=== PATIENT | male | born 1985 | race Caucasian/White ===

== ENCOUNTER 2021-08-26 19:19 | Emergency (ER) | payer OTHER, SELFPAY ==
--- NOTE | ~2021-08-26 | XR_ITS ---
XR chest 2V DATE: 08/26/2021 22:48 INDICATION: Fever, cough, nausea TECHNIQUE: PA and lateral views COMPARISON: None FINDINGS: Normal heart size. No hilar or mediastinal enlargement. No pulmonary infiltrate or consolid ation, pleural effusion or pulmonary vascular congestion or pneumothorax. Status post cholecystectomy. 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
--- NOTE | ~2021-08-26 | CT_ITS ---
EXAMINATION: CT abdomen pelvis w con DATE: 08/27/2021 00:16 INDICATION: Right flank pain. Fever. TECHNIQUE: Computed tomography (CT) of the abdomen and pelvis was performed with 100 mL Omnipaque 350 intravenous contrast. Automated exposure control and iterative reconstruction technique were employe d. The dose-length product was 1569.39 mGy-cm. COMPARISON: None. FINDINGS: The visualized portions of the lung bases are clear without pneumonia or pleural effusion. The heart size is normal. No pericardial effusion. There is diffuse hepatic steatosis. There is mild splenomegaly. There are changes of cholecystectomy. The pancreas, adrenal glands, and kidneys are nor mal. There are no dilated loops of bowel. The appendix is normal. There is an umbilical hernia contai candy fat. There are no pathologically enlarged lymph nodes. There is no free intraperitoneal fluid. T he left spermatic cord is absent. There is a chronic compression fracture in lower thoracic spine. IMPRESSION: 1. Diffuse hepatic steatosis. 2. Mild splenomegaly. 3. Umbilical hernia containing fat. Reviewed, dictated and finalized at location A. 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
[2021-08-26 19:58] VITALS: BP 111/63; PULSE 106; RESP 18; TEMP 38.1; O2SAT 97
--- NOTE | 2021-08-26 22:48 | ED.GENADULT ---
HPI - General Adult General Chief complaint: Fever Stated complaint: Fever Time Seen by Provider: 08/26/21 22:40 Source: patient and RN notes reviewed History of Present Illness HPI narrative: Patient is a 36 y/o male complaining of fever since yesterday. He state that his temp was up to 102.8. He has been taking Tylenol and Motrin, which provides temporary relief. He has a slight cough. He also has some right back pain. He has no dysuria. Related Data Home Medications Medication Instructions Recorded Confirmed No Home Medications 08/26/21 08/26/21 Allergies Allergy/AdvReac Type Severity Reaction Status Date / Time No Known Allergies Allergy Verified 08/26/21 23:02 Review of Systems Constitutional: Constitutional: Denies chills, Reports fever(s), Denies headache(s) and Denies weakness Eyes: Eyes: Denies blurry vision ENT: Denies headache(s) and Denies neck pain Cardiovascular: Cardiovascular: Denies chest pain and Denies dyspnea Respiratory: Respiratory: Reports cough and Denies dyspnea Gastrointestinal: Gastrointestinal: Denies abdominal pain, Denies diarrhea, Denies nausea and Denies vomiting Genitourinary: Genitourinary: Denies hematuria and Denies dysuria Musculoskeletal: Musculoskeletal: Reports back pain and Denies neck pain Neurologic: Denies headache(s) and Denies weakness Exam Const: General: no acute distress and well developed Orientation/consciousness: oriented to person, oriented to place, oriented to time and patient oriented x3 HENMT: Head: normocephalic Ears: external ears normal General nose exam: Normal external nose present Eyes: General: appearance normal, both eyes and all related structures Conjunctivae: conjunctivae normal Neck: Neck: normal visual inspection and full ROM Chest: Chest palpation & inspection: normal inspection of the chest and no tenderness Resp: Effort & Inspection: normal respiratory effort Auscultation: clear to auscultation bilaterally Cardio: Rate: regular rate Rhythm: regular rhythm GI: GI Palp: No abdominal tenderness and Yes Soft to palpation Skin: General skin exam: normal color and turgor normal Neuro: General: oriented to person, oriented to place, oriented to time and patient oriented x3 Cognition (Neuro): normal cognition Extrem: General: normal to inspection, full ROM and no pedal edema Psych: Appearance: grossly normal Mental Status: mental status grossly normal Affect: normal affect Course Vital Signs Vital signs: Vital Signs Temperature 38.1 C H 08/26/21 19:58 Pulse Rate 106 H 08/26/21 19:58 Respiratory Rate 18 08/26/21 19:58 Blood Pressure 111/63 08/26/21 19:58 Pulse Oximetry 97 08/26/21 19:58 Temperature 37.5 C 08/26/21 23:06 Pulse Rate 106 H 08/26/21 19:58 Respiratory Rate 18 08/26/21 19:58 Blood Pressure 111/63 08/26/21 19:58 Pulse Oximetry 97 08/26/21 19:58 Medical Decision Making Vital Signs Vital Signs: Vital Signs Temperature 38.1 C H 08/26/21 19:58 Pulse Rate 106 H 08/26/21 19:58 Respiratory Rate 18 08/26/21 19:58 Blood Pressure 111/63 08/26/21 19:58 Pulse Oximetry 97 08/26/21 19:58 Temperature 37.5 C 08/26/21 23:06 Pulse Rate 106 H 08/26/21 19:58 Respiratory Rate 18 08/26/21 19:58 Blood Pressure 111/63 08/26/21 19:58 Pulse Oximetry 97 08/26/21 19:58 Lab Data Result diagrams: 08/26/21 23:10 08/26/21 23:10 Labs: Lab Results 08/26/21 08/26/21 08/26/21 Range/Units 23:10 23:10 23:10 WBC Pending RBC Pending Hgb Pending Hct Pending MCV Pending MCH Pending MCHC Pending RDW Pending Plt Count Pending MPV Pending Immature Gran % (Auto) Pending Neut % (Auto) Pending Lymph % (Auto) Pending Coffee % (Auto) Pending Eos % (Auto) Pending Baso % (Auto) Pending Lymph # (Auto) Pending Coffee # (Auto) Pending Eos # (Au
[2021-08-26] MEDS: ACETAMINOPHEN 325 MG TABLET 650 MG PO (23:03)
[2021-08-26 23:06] VITALS: TEMP 37.5
[2021-08-26] MEDS: SODIUM CHLORIDE 0.9% IV 1,000 ML 999 ML IV CONT (23:20)
[2021-08-26 23:21] LABS: Basophils Percent Auto 0.2 % (0.2-1.2); Hematocrit 40.7 % (42.0-52.0); Hemoglobin 14.3 g/dL (14.0-18.0); Immature Granulocyte Absolute 0.05 K/mm3 (0.00-0.031); Immature Granulocyte Percent A 1.2 % (0-0.5); Lymphocytes Absolute Auto 1.09 K/mm3 (0.9-3.2); Lymphocytes Percent Auto 27.1 % (18.3-44.2); Mean Corpuscular HGB Conc 35.1 g/dl (32-36); Mean Corpuscular Volume 88.1 fl (80-100); Monocytes Absolute Auto 0.3 K/mm3 (0.1-0.6); Monocytes Percent Auto 6.5 % (2.6-8.5); Neutrophils Absolute Auto 2.6 K/mm3 (1.3-6.7); Platelet Count Result 102 k/mm3 (150-375); Red Blood Count 4.62 M/mm3 (4.6-6.20); Red Cell Distribution Width 12.4 % (11.5-14.5)
[2021-08-26 23:33] LABS: Alanine Aminotransferase 128 U/L (4-50); Albumin Level 3.8 g/dL (3.5-5.1); Alkaline Phosphatase 118 U/L (38-126); Anion Gap 7 mmol/L (8-16); Aspartate Amino Transferase 92 U/L (17-59); Bilirubin,Total 1.2 mg/dL (0.2-1.3); Blood Urea Nitrogen 11 mg/dL (9-20); Calcium 8.5 mg/dL (8.4-10.2); Carbon Dioxide 25 mmol/L (22-30); Chloride 104 mmol/L (98-107); Estimated CRCL calculation 133 ml/min; Estimated Glomerular Filt Rate > 60; Glucose 120 mg/dL (65-110); Lactic Acid Reflex 0.8 mmol/L (0.7-2.1); Potassium 3.5 mmol/L (3.4-5.0); Sodium 136 mmol/L (137-145)
[2021-08-26 23:38] LABS: Add Urine Microscopic? YES; Appearance Urine Cloudy (Clear); Bilirubin Urine 1+ (Negative); Blood Urine 1+ (Negative); Color Urine Amber (Yellow); Glucose Urine UA Negative (Negative); Ketones Urine Negative (Negative); Leukocyte Esterase Ur Negative LEU/UL (Negative); Mucus Urine Heavy /lpf; Nitrate Urine Negative (Negative); Protein Urine 2+ mg/dL (Negative); Squamous Epithelial Cell Urine Rare /hpf (Few); WBC Urine 0-3 /hpf
[2021-08-26 23:50] LABS: Platelet Estimate Decreased (Adequate)
[2021-08-27 01:41] VITALS: TEMP 37.3
[2021-08-27 02:15] VITALS: BP 124/89; PULSE 80; RESP 16; O2SAT 98
[2021-08-27 02:32] LABS: Hepatitis B Surface Antigen Negative (Negative)
[2021-08-27 02:38] LABS: HAV RESULT Negative (Negative); Hepatitis B Core IgM Result Negative (Negative)
[2021-08-27 02:50] LABS: Hepatitis C Virus Antibody Negative (Negative)
[2021-08-27 19:00] LABS: SARS-CoV-2 RNA PCR Negative
== END 2021-08-27 02:16 | disposition home or self-care (01) ==
PROVIDERS: Emergency Provider Emergency Medicine
DX: R50.9 Fever, unspecified (principal); R74.01 Elevation of levels of liver transaminase levels; M54.9 Dorsalgia, unspecified; Z20.822 Contact with and (suspected) exposure to COVID-19
CPT/HCPCS: 36415; 71046; 74177; 80053; 80074; 81001; 83605; 85025; 87040; 96360; 96361; 99284; A9270; C9803; J7030; Q9967; U0003; U0005

== ENCOUNTER 2024-02-02 01:35 | Emergency (ER) | payer OTHER, SELFPAY ==
--- NOTE | ~2024-02-02 | XR_ITS ---
Lumbosacral Spine: AP and lateral views Clinical History: Pain Findings: The normal lordotic curve is maintained. The vertebral bodies and posterior elements are i ntact. The intervertebral disc spaces are preserved. The sacroiliac joints are normally outlined. Impression: No significant abnormality. Reviewed, dictated and finalized at [facility]. Impression: No significant abnormality.
[2024-02-02 01:39] VITALS: BP 149/91; PULSE 113; RESP 20; TEMP 36.5; O2SAT 98
--- NOTE | 2024-02-02 01:53 | ED.GENADULT ---
HPI - General Adult General Chief complaint: Back Pain/Injury Stated complaint: Low back pain, abnormal BM, decreased urine Time Seen by Provider: 02/02/24 01:45 Source: patient Mode of arrival: ambulatory Limitations: no limitations History of Present Illness HPI narrative: 39-year-old male presenting from multiple symptoms. He fell on his bottom several months ago and has been having aching pain in his bottom number since. It is in his low lumbar back that goes on both sides of his back it does not radiate. He also feels achy does not have great bowel movements months and they are smaller than normal but he still has them regularly. Also concerned that he isn't urinating as much as he used to. This is been ongoing for months. He came in tonight because his back pain is aching a bit more than normal and he finally wants to figure out what may be going on. Does not have a PCP Related Data Home Medications Medication Instructions Recorded Confirmed No Home Medications 08/26/21 08/26/21 Allergies Allergy/AdvReac Type Severity Reaction Status Date / Time No Known Allergies Allergy Verified 02/02/24 01:42 Review of Systems Review of Systems: All systems reviewed & are unremarkable except as noted in HPI and below Exam Narrative: Constitutional: Generally well appearing, no acute distress Head: Atraumatic, no deformities. Eyes: Pupils equal, round, and reactive to light. Neck: Supple, no tracheal deviation, no JVD. ENMT: Mucous membranes moist Cardiovascular: S1, S2 auscultated. No murmurs, rubs, or gallops. No S3/S4. Normal Distal pulses. No peripheral edema. Respiratory: Lung sounds equal. No wheezes, rales, or rhonchi. Gastrointestinal: Abdomen was soft and non-tender. Non-distended. No rebound or guarding. Genitourinary: Deferred Musculoskeletal: Normal muscle tone and bulk. No obvious deformities or tenderness over extremities. No midline spine tenderness. Some mild tenderness in the paraspinal region of of the lumbar region Skin: No rashes. Neurological: Strength 5/5 in extremities. Cranial nerves I-XII grossly intact. Distal sensation intact. Mental Status: Awake, alert and oriented x3. Follows commands Course Vital Signs Vital signs: Vital Signs Temperature 36.5 C 02/02/24 01:39 Pulse Rate 113 H 04/15/24 01:39 Respiratory Rate 20 02/02/24 01:39 Blood Pressure 149/91 H 02/02/24 01:39 Pulse Oximetry 98 02/02/24 01:39 Oxygen Delivery Room Air 02/02/24 01:39 Temperature 36.5 C 02/02/24 01:39 Pulse Rate 113 H 02/02/24 01:39 Respiratory Rate 20 02/02/24 01:39 Blood Pressure 149/91 H 02/02/24 01:39 Pulse Oximetry 98 02/02/24 01:39 Oxygen Delivery Room Air 02/02/24 01:39 Medical Decision Making MDM Narrative Medical decision making narrative: 39-year-old male with multiple months of symptoms including some low back pain after falling on his low back several months ago, feeling like he is not urinating as much as well as normal for several months and his bowel movements are not as strong as normal for multiple months. He still has multiple bowel movements today. Exam shows tachycardia in triage however he is not tachycardic on my exam and his heart rate is 80. He is very well-appearing. Back is unremarkable apart from some slight tenderness in the lumbar paraspinal region. Otherwise exam is unremarkable. Suspect may be some chronic low back pain. He is not having any red flag findings of any acute spinal cord impingement. This is all chronic issues. Discussed he needs to follow up with his PCP regarding these issues. Obtain an x-ray of his lumbar spine. Given Toradol. Also checked his urine. Labs and imaging reviewed by myself. His x-ray is not showing any significant abnormality on my read. Urinalysis is clear. Patient appears very stable, no obvious emergent ongoing process, stable for discharge. Pt feeling improved and would like to go home at this
[2024-02-02] MEDS: KETOROLAC 30 MG/ML VIAL (*BKC) IM (02:06)
[2024-02-02 03:27] LABS: Appearance Urine Clear (Clear); Bilirubin Urine Negative (Negative); Blood Urine Negative (Negative); Color Urine Yellow (Yellow); Glucose Urine UA Negative (Negative); Ketones Urine Negative (Negative); Leukocyte Esterase Ur Negative LEU/UL (Negative); Nitrate Urine Negative (Negative); Protein Urine Negative (Negative); Specific Grav Ur 1.013 (1.001-1.035); pH Urine 6.5 (5.0-9.0)
[2024-02-02 03:32] LABS: Add Urine Microscopic? NO
[2024-02-02 03:58] VITALS: BP 144/92; PULSE 91; RESP 18; O2SAT 100
== END 2024-02-02 04:00 | disposition home or self-care (01) ==
PROVIDERS: Emergency Provider Emergency Medicine
DX: M54.50 Low back pain, unspecified (principal)
CPT/HCPCS: 72100; 81003; 96372; 99283; J1885